=== PATIENT | male | born 1945 | race Hispanic/Latino ===

== ENCOUNTER 2020-01-23 10:32 | Outpatient (CLI) | payer MEDICARE, OTHER ==
--- NOTE | 2020-01-23 12:29 | Vascular Lab Report ---
Abdominal arterial Ultrasound HISTORY: S35.219A UNSPECIFIED INJURY TO CELIAC ARTERY/INITIAL ENCOUNTER. TECHNIQUE: Grayscale and color imaging performed. COMPARISON: None FINDINGS: The abdominal aorta, celiac artery, SMA, and common iliac arteries are all widely patent. N o aneurysm identified. Normal antegrade waveforms are noted. Maximal dimension of the abdominal aorta is in the mid segment measuring 2.9 cm which is technically slightly ectatic but not aneurysmal. The right common iliac artery measures up to 1.3 cm in maximal transverse dimension and the left measure s 1.4 cm. Larger measurements were provided although these measurements were overestimated since they are in the plane of the vessel. IMPRESSION: 1. Widely patent vessels with no gross injury or occlusion identified on this exam. 2. 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 Signer Name: Gregory Gomes MD Signed: 01/23/2020 12:25 PM Workstation Name: [id number]
== END 2020-01-23 10:33 | disposition home or self-care (01) ==
LOC: VAS 10:32
PROVIDERS: ATTEND Surgery Vascular Surgery
DX: I77.819 Aortic ectasia, unspecified site (principal)
CPT/HCPCS: 93979